=== PATIENT | female | born 1955 | race Caucasian/White ===

== ENCOUNTER → 2023-07-15 | Emergency (ER) | payer OTHER ==
[~2023-07-15] MED LIST: DIPHENOX/ATROP SULF 1 TAB PO ONE; FAMOTIDINE 20 MG/2 ML VIAL IV ONE; NA CHLORIDE 0.9% 1,000 ML ONE; ONDANSETRON 4 MG/2 ML VIAL ONE
[2023-07-15 21:34] LABS: Absolute Lymphocytes (CBC) 0.8 K/uL (0.7-4.9); Hematocrit 42.2 % (36.0-45.0); Lymphocytes % 15.8 % (15.3-44.8); MCV 85.5 fL (80-100); MPV 8.5 fL (7.6-11.3); Platelets 267 thou/uL (152-406); RBC Red Blood Cell Count 4.93 M/uL (3.86-4.86)
[2023-07-15 21:56] LABS: Albumin 3.3 g/dL (3.4-5.0); Bilirubin Direct 0.1 mg/dL (0-0.2); Bilirubin Indirect, Calculated 0.5 mg/dL (0.2-0.8); Bilirubin Total 0.6 mg/dL (0.2-1.0); Protein, Total 7.2 g/dL (6.4-8.2); Troponin High Sensitivity 32.4 pg/mL (<58.9)
[2023-07-15 21:59] LABS: Magnesium 2.6 mg/dL (1.6-2.4); Potassium 3.8 mEq/L (3.5-5.1)
--- NOTE | 2023-07-15 23:17 | ER ---
Nurse's Notes [facility] Name: Siria Montoya Age: 67 yrs Sex: Female : 1955 Arrival Date: 07/15/2023 Time: 20:12 Bed 14 Private MD: Diagnosis: Other specified viral diseases;Diarrhea, unspecified;Influenza A, acute viral gastroenteritis,, acute dehydration, syncopal episode, diarrheal illness. Presentation: 07/15 20:29 Chief complaint: EMS states: SYNCOPAL EPISODE ON TOILET AFTER TWO DAYS OF FLU-LIKE S/S. as6 Coronavirus screen: diarrhea, headache. Ebola Screen: No symptoms or risks identified at this time. Initial Sepsis Screen: Does the patient meet any 2 criteria? HR > 90 bpm. No. Patient's initial sepsis screen is negative. Does the patient have a suspected source of infection? No. Patient's initial sepsis screen is negative. Risk Assessment: Do you want to hurt yourself or someone else? Patient reports no desire to harm self or others. Onset of symptoms is unknown. Care prior to arrival: Medication(s) given: Normal saline infusion, 500 mL, IV initiated. 20:29 Method Of Arrival: EMS: [facility] as6 20:29 Acuity: KAYLI 3 as6 Triage Assessment: 20:31 General: Appears unkempt, Behavior is drowsy. Pain: Unable to use pain scale. GI: as6 Abdomen is non-distended. Historical: - Allergies: 20:31 Bentyl; as6 20:31 Codeine; as6 20:31 Demerol; as6 20:31 pcn; as6 20:31 Sulfa (Sulfonamide Antibiotics); as6 20:31 Talwin; as6 - PMHx: 20:31 HTN; Lupus; as6 - Immunization history:: Adult Immunizations up to date. - Social history:: Smoking status: unknown. - Family history:: not pertinent. Screenin:43 [facility] ED Fall Risk Assessment (Adult) History of falling in the last 3 months, nw1 including since admission Yes- single mechanical fall (1 pt) Confusion or Disorientation No (0 pts) Intoxicated or Sedated No (0 pts) Impaired Gait No (0 pts) Mobility Assist Device Used No (0 pt) Altered Elimination Yes (1 pt) Score/Fall Risk Level 0 - 2 = Low Risk Oriented to surroundings, Maintained a safe environment, Educated pt \T\ family on fall prevention, incl call for assistance when getting out of bed, Provided non-skid footwear, Hourly rounding (assess needs \T\ fall precautionary measures) done. Abuse screen: Denies threats or abuse. Denies injuries from another. Nutritional screening: No deficits noted. Tuberculosis screening: No symptoms or risk factors identified. Assessment: 21:23 Reassessment: PT STATES SHE HAS NOT BEEN FEELING WELL AND WENT TO AN URGENT CARE. SHE nw1 WAS TESTED FOR FLU AND COVID WITH BOTH READS NEGATIVE. PT STATE SHE FELT SO BAD THAT SHE HAD TO CALL EMS FOR TRANSPORT. PT ENDORSES X1 DIARRHEA. General: Appears in no apparent distress. uncomfortable, obese, well groomed, Behavior is calm, cooperative, appropriate for age, Reports feeling ill for 2-3 days. Cardiovascular: Reports None Capillary refill < 3 seconds. Respiratory: Respiratory effort is even, unlabored, Respiratory pattern is regular, symmetrical. GI: Abdomen is round obese, Bowel sounds present X 4 quads. Reports diarrhea. Derm: Skin is intact, is healthy with good turgor, Skin is dry, Skin is pink, warm \T\ dry. Musculoskeletal: Reports weakness in GENERALIZED. Vital Signs: 20:29 BP 85 / 45; Pulse 110; Resp 20; as6 20:36 Weight 90.72 kg; nw1 21:00 BP 125 / 57; Pulse 68; Resp 17; Temp 98.2(O); Pulse Ox 99% ; nw1 23:43 BP 132 / 64; Pulse 71; Resp 17; Pulse Ox 99% on R/A; nw1 ED Course: 20:29 Patient arrived in ED. as6 20:29 Pako Flores MD is Attending Physician. sp4 20:30 Triage completed. as6 20:31 Arm band placed on. as6 20:35 Karina Guerra RN is Primary Nurse. nw1 23:10 No provider procedures requiring assistance completed. Maintain EMS IV. Dressing nw1 intact. Good blood return noted. Site clean \T\ dry. Gauge \T\ site: 20G RAC. 23:43 Patient has correct armband on for positive identification. Placed in gown. Bed in low nw1 position. Call light in reach. Side rails up X2. Adult w/ patient. Provided Education on: POC. Client placed on continuous cardiac and pulse oximetry monitoring. NIBP monitoring applied. hot die picker on. Pulse ox on. NIBP on. 23:43 IV discontinued, intact, bleeding controlled, No redness/swelling at site. Pressure nw1 dressing applied. Administered Medications: 21:11 Drug: NS 0.9% IV 1000 ml IV at 1 bolus Per protocol; 1000 mL bolus Route: IV; Rate: 1 nw1 bolus; Site: right antecubital; 21:12 Drug: Diphenoxylate-Atropine PO 2 tabs PO once Route: PO; nw1 22:23 Drug: NS 0.9% IV 1000 ml IV at 125 ml/hr continuous Route: IV; Rate: 125 ml/hr; Site: nw1 right antecubital; 22:34 Drug: Diphenoxylate-Atropine PO 1 tabs PO once Route: PO; nw1 22:34 Drug: Ondansetron IVP 8 mg IVP once; over 2 minutes Route: IVP; Site: right antecubital;nw1 Medication: 23:43 VIS not applicable for this client. nw1 Outcome: 23:17 Discharge ordered by MD. avila 23:43 Discharged to home ambulatory, with family, nw1 23:43 Condition: stable 23:43 Discharge instructions given to patient, Instructed on discharge instructions, follow up and referral plans. medication usage, Demonstrated understanding of instructions, follow-up care, medications, Prescriptions given X 4, 23:57 Patient left the ED. nw1 Signatures: Hernandez Maxwell RN RN as6 Pako Flores MD MD sp4 Karina Guerra RN RN nw1
--- NOTE | 2023-07-15 23:18 | EDPHYS ---
Physician Documentation [facility] Name: Siria Montoya Age: 67 yrs Sex: Female : 1955 Arrival Date: 07/15/2023 Time: 20:12 Bed 14 Private MD: ED Physician Pako Flores HPI: 07/15 20:31 This 67 yrs old Female presents to ER via EMS with complaints of Diarrhea, sp4 Syncope. 20:31 59-year-old female presents with EMS for syncopal episode at home. Patient states she sp4 has been feeling unwell for a few days she was seen at urgent care clinic yesterday and tested negative for influenza, COVID-19, negative for strep. Patient now presents with syncopal episode on the commode today as she was using BM, patient became diaphoretic passed out on the commode and was lethargic afterwards. EMS administered a 1 L bolus fluid. Patient on arrival alert and oriented. EMS reported hypotension. EKG normal. . Historical: - Allergies: 20:31 Bentyl; as6 20:31 Codeine; as6 20:31 Demerol; as6 20:31 pcn; as6 20:31 Sulfa (Sulfonamide Antibiotics); as6 20:31 Talwin; as6 - PMHx: 20:31 HTN; Lupus; as6 - Immunization history:: Adult Immunizations up to date. - Social history:: Smoking status: unknown. - Family history:: not pertinent. ROS: 20:34 Constitutional: Positive for generalized weakness, positive diarrhea, positive syncope, sp4 positive hypotension, positive diaphoresis 20:34 All other systems are negative, Exam: 20:34 Constitutional: This is a well developed, well nourished patient who is awake, alert, sp4 generalized pallor, diaphoresis, ill-appearing, nontoxic, tachycardic on arrival Head/Face: Normocephalic, atraumatic. Eyes: Pupils equal round and reactive to light, extra-ocular motions intact. Lids and lashes normal. Conjunctiva and sclera are not injected. Cornea within normal limits. Periorbital areas with no swelling, redness, or edema. ENT: Nares patent. No nasal discharge, no septal abnormalities noted. Tympanic membranes are normal and external auditory canals are clear. Oropharynx with no redness, swelling, or masses, exudates, or evidence of obstruction, uvula midline. Mucous membranes moist. Neck: Trachea midline, no thyromegaly or masses palpated, and no cervical lymphadenopathy. Supple, full range of motion without nuchal rigidity, or vertebral point tenderness. Chest/axilla: Normal chest wall appearance and motion. Nontender with no deformity. No lesions are appreciated. Cardiovascular: Regular tachycardia, generalized pallor. no gallops, murmurs, or rubs. Normal PMI, no JVD. No pulse deficits. Respiratory: Lungs have equal breath sounds bilaterally, clear to auscultation and percussion. No rales, rhonchi or wheezes noted. No increased work of breathing, no retractions or nasal flaring. Abdomen/GI: Soft, non-tender, with normal bowel sounds. No distension or tympany. No guarding or rebound. No evidence of tenderness throughout. Back: No spinal tenderness. No costovertebral tenderness. Skin: Warm, dry with normal turgor. Normal color with no rashes, no lesions, and no evidence of cellulitis. MS/ Extremity: Pulses equal, no cyanosis. Neurovascular intact. Full, normal range of motion. Neuro: Awake and alert, GCS 15, oriented to person, place, time, and situation. Cranial nerves II-XII grossly intact. Motor strength 5/5 in all extremities. Sensory grossly intact. Psych: Awake, alert, with orientation to person, place and time. Behavior, mood, and affect are within normal limits Vital Signs: 20:29 BP 85 / 45; Pulse 110; Resp 20; as6 20:36 Weight 90.72 kg; nw1 21:00 BP 125 / 57; Pulse 68; Resp 17; Temp 98.2(O); Pulse Ox 99% ; nw1 23:43 BP 132 / 64; Pulse 71; Resp 17; Pulse Ox 99% on R/A; nw1 MDM: 20:30 Patient medically screened. sp4 23:13 Differential diagnosis: gastritis, diverticulitis, viral gastroenteritis, sp4 gastroenteritis. Data reviewed: vital signs, nurses notes, EMS record, old medical records, lab test result(s), CBC, electrolytes, Flu: positive. Consideration of Admission/Observation Escalation of care including admission/observation considered. ED course: 59-year-old female presents with acute syncope after diarrheal episode in the bathroom. Here patient has had copious diarrhea that is nonbloody. Patient has had nausea as well. Patient tested positive for influenza A. Patient at this time is stable for discharge home will advise clear liquid diet. Importance of clear liquid diet was discussed with the patient. Clear liquid diet advised for at least 24 hours. Tamiflu twice a day for 5 days, Lomotil every 6 hours as needed for diarrhea, ondansetron every 6 hours as needed for nausea. I high-dose ibuprofen for aches and pains. But most importantly clear liquid diet. . 07/15 20:30 Order name: Influenza Screen (a \T\ B); Complete Time: 23:06 sp4 07/15 20:30 Order name: Basic Metabolic Panel; Complete Time: 22:34 sp4 07/15 20:30 Order name: CBC with Diff; Complete Time: 21:56 sp4 07/15 20:30 Order name: LFT's; Complete Time: 22:34 sp4 07/15 20:30 Order name: Magnesium; Complete Time: 22:34 sp4 07/15 20:30 Order name: NT PRO-BNP; Complete Time: 22:34 sp4 07/15 20:30 Order name: Troponin HS; Complete Time: 22:34 sp4 07/15 21:30 Order name: SARS-COV-2 RT PCR; Complete Time: 22:34 EDMS 07/15 20:30 Order name: EKG; Complete Time: 20:30 4 07/15 20:30 Order name: Cardiac monitoring; Complete Time: 21:12 sp4 07/15 20:30 Order name: EKG - Nurse/Tech; Complete Time: 21:12 sp4 07/15 20:30 Order name: IV Saline Lock; Complete Time: 21:12 sp4 07/15 20:30 Order name: Labs collected and sent; Complete Time: 21:12 sp4 07/15 20:30 Order name: O2 Per Protocol; Complete Time: 21:12 sp4 07/15 20:30 Order name: O2 Sat Monitoring; Complete Time: 21:12 sp4 Administered Medications: 21:11 Drug: NS 0.9% IV 1000 ml IV at 1 bolus Per protocol; 1000 mL bolus Route: IV; Rate: 1 nw1 bolus; Site: right antecubital; 21:12 Drug: Diphenoxylate-Atropine PO 2 tabs PO once Route: PO; nw1 22:23 Drug: NS 0.9% IV 1000 ml IV at 125 ml/hr continuous Route: IV; Rate: 125 ml/hr; Site: nw1 right antecubital; 22:34 Drug: Diphenoxylate-Atropine PO 1 tabs PO once Route: PO; nw1 22:34 Drug: Ondansetron IVP 8 mg IVP once; over 2 minutes Route: IVP; Site: right antecubital;nw1 Disposition Summary: 07/15/23 23:17 Discharge Ordered Problem: new sp4 Symptoms: have improved sp4 Condition: Stable sp4 Diagnosis - Other specified viral diseases sp4 - Diarrhea, unspecified sp4 - Influenza A, acute viral gastroenteritis,, acute dehydration, syncopal episode, sp4 diarrheal illness. Followup: sp4 - With: Private Physician - When: 7 - 10 days - Reason: Recheck today's complaints Discharge Instructions: - Discharge Summary Sheet sp4 - Clear Liquid Diet, Adult sp4 - Influenza, Adult, [id number] sp4 Forms: - Patient Portal Instructions sp4 Prescriptions: - Ibuprofen 800 mg Oral Tablet - take 1 tablet ORAL route every 8 hours As needed take with food; 30 tablet; sp4 Refills: 0, Product Selection Permitted - Lomotil 2.5-0.025 mg Oral tablet - take 1 tablet ORAL route every 6 hours As needed PRN diarrhea; 30 tablet; sp4 Refills: 0, Product Selection Permitted - Tamiflu 75 mg Oral capsule - take 1 tablet ORAL route every 12 hours for 5 days; 10 tablet; Refills: 0, sp4 Product Selection Permitted - ondansetron 8 mg Oral Tablet,disintegrating - take 1 tablet ORAL route every 8 hours PRN nausea; 30 tablet; Refills: 0, sp4 Product Selection Permitted Signatures: Dispatcher [employer] Hernandez Timmons RN RN as6 Pako Flores MD MD sp4 Karina Guerra RN RN nw1 Corrections: (The following items were deleted from the chart) 21:30 20:30 SARS-COV-2 Antigen Rapid+I.LAB.BRZ ordered. EDMS EDMS
[2023-07-16 02:44] VITALS: BP 132/64; TEMP 98.2; O2SAT 99
== END ==
LOC: ER 20:12
DX: J10.1 Influenza due to other identified influenza virus with other respiratory manifestations (principal); A08.4 Viral intestinal infection, unspecified; E86.0 Dehydration; R55 Syncope and collapse; Z11.52 Encounter for screening for COVID-19; I10 Essential (primary) hypertension; Z88.0 Allergy status to penicillin; Z88.2 Allergy status to sulfonamides; Z88.5 Allergy status to narcotic agent; Z88.8 Allergy status to other drugs, medicaments and biological substances
CPT/HCPCS: 85025; 80048; 36415; 83735; 80076; 84484; 83880; 87635; 87804 ×2; 96374; 99285; J2405; J7030 ×2

== ENCOUNTER → 2023-07-16 | Emergency (ER) | payer OTHER ==
[2023-07-16 11:47] LABS: Absolute Lymphocytes (CBC) 1.4 K/uL (0.7-4.9); Hematocrit 43.4 % (36.0-45.0); Lymphocytes % 13.2 % (15.3-44.8); MCV 83.4 fL (80-100); MPV 8.5 fL (7.6-11.3); Platelets 274 thou/uL (152-406)
[2023-07-16 12:03] LABS: Albumin 3.3 g/dL (3.4-5.0); Bilirubin Total 0.5 mg/dL (0.2-1.0); Potassium 3.5 mEq/L (3.5-5.1)
--- NOTE | 2023-07-16 12:37 | RAD REPORT ---
EXAM DESCRIPTION: CT - Abdomen Pelvis W Contrast - 07/16/2023 11:56 am CLINICAL HISTORY: ABD PAIN COMPARISON: CT ABD PELVIS W CONTRAST dated 10/11/2015 TECHNIQUE: Thin cut axial CT imaging of the abdomen and pelvis was performed following intravenous a dministration of 100 mL Isovue 300. Multiplanar reformats were generated and reviewed. All CT scans are performed using dose optimization technique as appropriate and may include automated exposure control or mA/KV adjustment according to patient size. FINDINGS: No suspicious findings in the lung bases. The liver, spleen, adrenal glands, and pancreas show no suspicious findings. Gallbladder was surgical ly removed. Symmetric renal function is seen with no hydronephrosis or suspicious renal mass. Long segment wall thickening, mucosal hyperenhancement, and transmural edema, extending from the mid transverse colon to the level of the rectum. Mild adjacent fat stranding. No free air, free fluid or fluid collections. No hernia, mass or bulky lymphadenopathy. The urinary bladder is suboptimally dist ended limiting evaluation. No suspicious bony findings. IMPRESSION: Long segment wall thickening and inflammation involving the mid transverse colon through the rectum suggestive of infectious or inflammatory proctocolitis.
[2023-07-16 12:45] LABS: Specific Gravity 1.016 (1.005-1.030); Urine Bacteria None Seen /HPF (<20); Urine Bilirubin NEGATIVE (Negative); Urine Blood Negative (Negative); Urine Clarity Turbid (Clear); Urine Color Light-Yellow (Yellow); Urine Glucose NEGATIVE (Negative); Urine Mucus Slight /HPF (None Seen); Urine Protein TRACE (Negative); Urine RBC None Seen /HPF (None Seen); Urine Urobilinogen Normal (Normal)
--- NOTE | 2023-07-16 13:32 | ER ---
Nurse's Notes [facility] Name: Siria Montoya Age: 67 yrs Sex: Female : 1955 Arrival Date: 07/16/2023 Time: 11:10 Bed 13 Private MD: Rio Salguero Diagnosis: Unspecified hemorrhoids;Rectal Bleeding Presentation: 07/16 11:16 Chief complaint: Patient states: Bloody stool started today. Has been having diarrhea ll1 from gastroenteritis. Seen here yesterday. Coronavirus screen: Client denies travel out of the [place] in the last 14 days. diarrhea, fatigue, Client presents with at least one sign or symptom that may indicate coronavirus-19. Standard/surgical mask placed on the client. Ebola Screen: Patient denies travel to an Ebola-affected area in the 21 days before illness onset. Risk Assessment: Do you want to hurt yourself or someone else? Patient reports no desire to harm self or others. Onset of symptoms was July 16, 2023. 11:16 Method Of Arrival: Ambulatory 1 11:16 Acuity: KAYLI 2 1 11:21 Initial Sepsis Screen: Does the patient meet any 2 criteria? No. Patient's initial 1 sepsis screen is negative. Does the patient have a suspected source of infection? Yes: Acute abdominal pain. Triage Assessment: 11:18 General: Appears uncomfortable, ill, Behavior is calm, cooperative, appropriate for ll1 age. Pain: Complains of pain in abdomen Pain currently is 10 out of 10 on a pain scale. Quality of pain is described as aching. Neuro: No deficits noted. Cardiovascular: No deficits noted. GI: Reports lower abdominal pain, diarrhea, rectal bleeding, nausea. Historical: - Allergies: 11:14 Bentyl; iw 11:14 Codeine; iw 11:14 Demerol; iw 11:14 pcn; iw 11:14 Sulfa (Sulfonamide Antibiotics); iw 11:14 Talwin; iw - PMHx: 11:14 HTN; Lupus; iw - Immunization history:: Adult Immunizations up to date. - Social history:: Smoking status: Patient denies any tobacco usage or history of. Screenin:09 [facility] ED Fall Risk Assessment (Adult) History of falling in the last 3 months, kd3 including since admission No falls in past 3 months (0 pts) Confusion or Disorientation No (0 pts) Intoxicated or Sedated No (0 pts) Impaired Gait No (0 pts) Mobility Assist Device Used No (0 pt) Altered Elimination No (0 pt) Score/Fall Risk Level 0 - 2 = Low Risk Maintained a safe environment. Abuse screen: Denies threats or abuse. Denies injuries from another. Nutritional screening: No deficits noted. Tuberculosis screening: No symptoms or risk factors identified. Assessment: 14:10 General: Appears in no apparent distress. Behavior is calm, cooperative. Pain: kd3 Complains of pain in abdomen. Vital Signs: 11:16 BP 220 / 101; Pulse 92; Resp 18; Temp 98.8; Pulse Ox 95% ; Weight 90.72 kg; Height 5 ll1 ft. 5 in. ; Pain 10/10; 13:02 BP 198 / 85; kd3 14:10 BP 178 / 81; Pulse 84; Resp 18; Pulse Ox 96% on R/A; kd3 11:16 Body Mass Index 33.28 (90.72 kg, 165.1 cm) ll1 11:16 Pain Scale: Adult ll1 ED Course: 11:11 Patient arrived in ED. rg4 11:11 Rio Salguero DO is Private Physician. rg4 11:13 Vishal Nunes MD is Attending Physician. ec2 11:14 Arm band placed on. iw 11:18 Triage completed. ll1 11:41 Initial lab(s) drawn, by sd, sent to lab. Inserted saline lock: 20 gauge in left iw antecubital area, using aseptic technique. Blood collected. 11:58 CT Abd/Pelvis - IV Contrast Only In Process Unspecified. EDMS 12:06 Ena Fowler, ROCÍO is Primary Nurse. kd3 12:38 [facility] Sent. kd3 13:31 Aidan Brown MD is Referral Physician. ec2 14:09 No provider procedures requiring assistance completed. IV discontinued, intact, kd3 bleeding controlled, No redness/swelling at site. Pressure dressing applied. 14:10 Patient has correct armband on for positive identification. Provided Education on: . kd3 Administered Medications: 12:38 Drug: Famotidine IVP 20 mg IVP once; dilute with 10 mL 0.9% NaCl; give over 2 minutes kd3 Route: IVP; Site: left antecubital; 14:11 Follow up: Response: No adverse reaction kd3 12:38 Drug: NS 0.9% IV 1000 ml IV at 1 bolus Per protocol; 1000 mL bolus Route: IV; Rate: 1 kd3 bolus; Site: left antecubital; 14:11 Follow up: IV Status: Completed infusion; IV Intake: 1000ml kd3 Medication: 14:10 VIS not applicable for this client. kd3 Intake: 14:11 IV: 1000ml; Total: 1000ml. kd3 Outcome: 13:31 Discharge ordered by . ec2 14:09 Discharged to home ambulatory, with family, kd3 14:09 Condition: stable 14:10 Discharge instructions given to patient, family, Instructed on discharge instructions, kd3 follow up and referral plans. Demonstrated understanding of instructions, follow-up care, medications, Prescriptions given X 1, 14:11 Patient left the ED. kd3 Signatures: Dispatcher [employer] Krys Mackenzie RN RN iw Garcia, Rubi rg4 Michelle Newell RN RN ll1 Ena Fowler RN RN kd3 Vishal Nunes MD MD ec2 Corrections: (The following items were deleted from the chart) 11:14 11:14 Arm band placed on Patient placed in an exam room, on a stretcher, iw 11:21 11:16 BP 205 / 130; Pulse 92bpm; Resp 18bpm; Pulse Ox 95%; Temp 98.8F; ll1 ll1
--- NOTE | 2023-07-16 13:32 | EDPHYS ---
Physician Documentation [facility] Name: Siria Montoya Age: 67 yrs Sex: Female : 1955 Arrival Date: 07/16/2023 Time: 11:10 Bed 13 Private MD: Rio Salguero ED Physician Vishal Nunes HPI: 07/16 11:21 This 67 yrs old Female presents to ER via Ambulatory with complaints of Bloody Stools. ec2 11:21 Patient arrives today for evaluation of bloody stools. Patient reports that she was ec2 seen last night for the same complaints, states that she was having some diarrhea and ultimately tested positive for influenza. External record review shows that she tested positive for the flu and had a lab test. Patient reports that what is new today is that she is having bloody stools that is teresa blood. Reports some lower abdominal cramping. Patient reports no issues with vomiting. Does report history of lupus as well as antiphospholipid syndrome.. Historical: - Allergies: 11:14 Bentyl; iw 11:14 Codeine; iw 11:14 Demerol; iw 11:14 pcn; iw 11:14 Sulfa (Sulfonamide Antibiotics); iw 11:14 Talwin; iw - PMHx: 11:14 HTN; Lupus; iw - Immunization history:: Adult Immunizations up to date. - Social history:: Smoking status: Patient denies any tobacco usage or history of. ROS: 11:21 Constitutional: as per hpi ec2 Exam: 11:21 Constitutional: GEN: NAD Head: atraumatic Eyes: EOMI Ears: External ears are ec2 normal. CV: regular rate LUNGS: no respiratory distress ABD: non-distended, soft, not guarding, not rigid SKIN: no evidence of rashes MSK: no evidence of trauma NEURO: moves all extremities equally Vital Signs: 11:16 BP 220 / 101; Pulse 92; Resp 18; Temp 98.8; Pulse Ox 95% ; Weight 90.72 kg; Height 5 ll1 ft. 5 in. ; Pain 10/10; 13:02 BP 198 / 85; kd3 14:10 BP 178 / 81; Pulse 84; Resp 18; Pulse Ox 96% on R/A; kd3 11:16 Body Mass Index 33.28 (90.72 kg, 165.1 cm) ll1 11:16 Pain Scale: Adult ll1 MDM: 11:19 Patient medically screened. ec2 11:21 Data reviewed: vital signs. ED course: Patient arrives today for evaluation of lower ec2 abdominal pain along with rectal bleeding. Examination remarkable for well-appearing nontoxic individual is otherwise in no acute distress, will obtain lab work, CT imaging, treat the patient symptoms with Pepcid and crystalloid and reassess the patient. Currently considering gastroenteritis, diverticulosis, low suspicion for upper GI bleed given lack of history for liver pathology, low suspicion for acute abdominal process such as aortoenteric fistula. . 12:39 ED course: CBC is reassuring without evidence of anemia. Metabolic profile shows ec2 appropriate electrolytes, diminished renal function with a GFR 52 and a creatinine of 1.14. CT imaging shows infectious or inflammatory proctocolitis. Given the patient's constellation of symptoms, I favor viral process. . 13:30 ED course: Rectal examination performed under nursing supervision, patient with ec2 hemorrhoids x 3, otherwise no blood or melena noted on DIMITRY. Patient otherwise remains well-appearing in no acute distress. I used shared decision making regarding inpatient hospitalization given the patient's symptoms however the patient declined and states that she felt comfortable return to home. I will discharge home, have a follow-up with the primary care doctor and give her information to a GI doctor.. 07/16 11:21 Order name: CBC with Diff; Complete Time: 12:39 ec2 07/16 11:21 Order name: CMP; Complete Time: 12:39 ec2 07/16 11:21 Order name: UAM; Complete Time: 13:04 ec2 07/16 11:21 Order name: CT Abd/Pelvis - IV Contrast Only; Complete Time: 12:39 ec2 Administered Medications: 12:38 Drug: Famotidine IVP 20 mg IVP once; dilute with 10 mL 0.9% NaCl; give over 2 minutes kd3 Route: IVP; Site: left antecubital; 14:11 Follow up: Response: No adverse reaction kd3 12:38 Drug: NS 0.9% IV 1000 ml IV at 1 bolus Per protocol; 1000 mL bolus Route: IV; Rate: 1 kd3 bolus; Site: left antecubital; 14:11 Follow up: IV Status: Completed infusion; IV Intake: 1000ml kd3 Disposition Summary: 07/16/23 13:31 Discharge Ordered Notes: Location: Home ec2 Condition: Stable ec2 Diagnosis - Unspecified hemorrhoids ec2 - Rectal Bleeding ec2 Followup: ec2 - With: Aidan Brown MD - When: - Reason: Recheck today's complaints Discharge Instructions: - Discharge Summary Sheet ec2 - Bloody Diarrhea ec2 Forms: - Medication Reconciliation Form ec2 - Thank You Letter ec2 - Antibiotic Education ec2 - Prescription Opioid Use ec2 - Patient Portal Instructions ec2 - Leadership Thank You Letter ec2 Prescriptions: - ciprofloxacin HCl 500 mg Oral tablet - take 1 tablet ORAL route every 12 hours for 5 days; 10 tablet; Refills: 0, ec2 Product Selection Permitted Signatures: Dispatcher [employer] EDKrys Swift RN RN iw Michelle Newell RN RN ll1 Ena Fowler RN RN kd3 Vishal Nunes MD MD ec2 Corrections: (The following items were deleted from the chart) 13:31 13:30 ED course: Rectal examination performed under nursing supervision, patient with ec2 hemorrhoids x 3, otherwise no blood or melena noted on DIMITRY.. ec2 13:43 13:30 ED course: Rectal examination performed under nursing supervision, patient with ec2 hemorrhoids x 3, otherwise no blood or melena noted on DIMITRY. Patient otherwise remains well-appearing in no acute distress. I will discharge home, have a follow-up with the primary care doctor and give her information to a GI doctor.. ec2
[2023-07-16 15:38] VITALS: BP 178/81; TEMP 98.8; O2SAT 96
== END ==
LOC: ER 11:10
DX: K64.9 Unspecified hemorrhoids (principal); Z88.0 Allergy status to penicillin; Z88.2 Allergy status to sulfonamides; Z88.5 Allergy status to narcotic agent; Z88.8 Allergy status to other drugs, medicaments and biological substances
CPT/HCPCS: 96361; 85025; 81001; 36415; 80053; 74177; 96374; 99284; Q9967

== ENCOUNTER 2023-09-02 09:44 | Day surgery (SDC) | payer OTHER ==
[2023-08-30 11:47] LABS: Potassium 4.1 mEq/L (3.5-5.1)
[2023-09-02] MEDS: NA CHLORIDE 0.9% 1,000 ML ONE (10:00)
[2023-09-02 11:02] VITALS: O2SAT 99
[2023-09-02] MEDS ORDERED: propofoL 200 MG/20 ML VIAL IV ONE (11:10)
[2023-09-02] MEDS ORDERED: LIDOCAINE 1% MPF 5 ML VIAL ONE (11:10)
--- NOTE | 2023-09-02 13:42 | EKG ---
Test Date: 2023-08-30 Test Time: 12:21:34 Kier Drier: RONAL MEASUREMENT RESULTS: Intervals: Rate: 71 ND: 164 QRSD: 82 QT: 390 QTc: 423 Creede: P: 73 ND: 164 QRS: 41 T: 83 INTERPRETIVE STATEMENTS: Normal sinus rhythm Low voltage QRS Borderline ECG Compared to ECG 10/11/2015 14:33:40 Low QRS voltage now present Electronically Signed On 09-02-23 13:35:17 [employer] APPRENTICE by Demetrius Yarbrough
[2023-09-02 14:55] VITALS: BP 137/64; TEMP 96.9
== END 2023-09-02 13:57 | disposition home or self-care (01) ==
LOC: OR 09:44
PROVIDERS: ATTEND Surgery
PROC: 0DBN8ZX Excision of Sigmoid Colon, Via Natural or Artificial Opening Endoscopic, Diagnostic (ICD-10-PCS; 2023-09-02)
PROC: 0DBN8ZX Excision of Sigmoid Colon, Via Natural or Artificial Opening Endoscopic, Diagnostic (ICD-10-PCS; principal; 2023-09-02 12:30)
DX: R19.7 Diarrhea, unspecified (principal); K59.00 Constipation, unspecified; K57.30 Diverticulosis of large intestine without perforation or abscess without bleeding; K64.8 Other hemorrhoids; K56.699 Other intestinal obstruction unspecified as to partial versus complete obstruction; Z86.16 Personal history of COVID-19; I10 Essential (primary) hypertension; I25.2 Old myocardial infarction
CPT/HCPCS: 93005; 80048; 36415; 82947; 88305; 45380 ×2; J2704; J2001; J7030

== ENCOUNTER 2025-04-11 23:23 | Emergency (ER) | payer OTHER ==
[2025-04-12] MEDS ORDERED: NA CHLORIDE 0.9% 500 ML ONE (01:04)
[2025-04-12] MEDS ORDERED: ONDANSETRON 4 MG/2 ML VIAL ONE (01:04)
[2025-04-12] MEDS ORDERED: FAMOTIDINE 20 MG/2 ML VIAL IV ONE (01:04)
[2025-04-12] MEDS ORDERED: MORPHINE 4 MG/ML SYR ONE ×2 (01:04→05:05)
[2025-04-12 01:20] LABS: Hematocrit 46.4 % (36.0-45.0)
[2025-04-12 01:24] LABS: Absolute Lymphocytes (CBC) 1.1 K/uL (0.7-4.9); Hemoglobin 15.7 g/dL (12.0-15.0); MCH 28.8 pg (27.0-35.0); MCHC 33.9 g/dL (32.0-36.0); MCV 85.1 fL (80-100); MPV 8.8 fL (7.6-11.3); Nucleated RBC Absolute Count 0.0 (0-0); Nucleated Red Blood Cells % 0.1 % (0-0); RBC Red Blood Cell Count 5.45 M/uL (3.86-4.86); White Blood Count 15.90 thou/uL (4.3-10.9)
[2025-04-12 01:28] LABS: PT Prothrombin Time 11.5 SECONDS (10-13.0); PTT, Activated Partial Thromb 30.0 SECONDS (27.2-37.4); Protime INR 1.02
[2025-04-12 01:41] LABS: ALT/SGPT 31.0 U/L (13-56); AST/SGOT 20.0 U/L (15-37); Albumin 3.9 g/dL (3.4-5.0); Albumin/Globulin Ratio 1.0 (1.1-1.8); Alkaline Phosphatase 123.0 U/L (45-117); Anion Gap 9.8 mEq/L (5.0-15.0); BUN Blood Urea Nitrogen 18.0 mg/dL (7-18); Bilirubin Indirect, Calculated 0.4 mg/dL (0.2-0.8); Globulin 3.9 g/dL (2.3-3.5); Glucose Level 172.0 mg/dL (74-106); Lipase 24.0 U/L (13-75); Magnesium 2.4 mg/dL (1.6-2.4); NT PRO-BNP 71.0 pg/mL (<125); Potassium 3.8 mEq/L (3.5-5.1); Troponin High Sensitivity 8.8 pg/mL (<58.9)
[2025-04-12 01:46] LABS: Differential Total Cells Count 100; Segmented Neutrophils 88 % (40-80)
[2025-04-12 01:47] LABS: Blood Morphology Comment NOT SEEN (NOT SEEN)
--- NOTE | 2025-04-12 05:46 | RAD REPORT ---
INDICATION: ABDOMINAL DISTENTION COMPARISON: No existing relevant imaging studies are available FINDINGS: Single frontal view of the chest was obtained. SUPPORT DEVICES: None HEART/MEDIASTINUM: Cardiomediastinal contours are normal. LUNGS/PLEURA: Lungs are clear. No pleural effusion or pneumothorax. OTHER: No other significant findings. IMPRESSION: No acute findings. Electronically signed by: Jean Luna DO 04/12/2025 02:01 AM CDT RP NR Due to temporary technical issues with the PACS/[employer] reporting system, reports are being roberta d by the in-house radiologist without review as a courtesy to ensure prompt reporting the interpreting radiologist is fully responsible for the content of the report. Transcribed Date/Time: 04/12/2025 5:46 AM
[2025-04-12] MEDS ORDERED: LACTULOSE 20 GM/30 ML UCUP ONE (06:19)
[2025-04-12] MEDS ORDERED: CEFTRIAXONE 1000 MG/VIAL ONE (06:19)
--- NOTE | 2025-04-12 06:19 | ER ---
Nurse's Notes [facility] Name: Siria Montoya Age: 69 yrs Sex: Female : 1955 Arrival Date: 04/11/2025 Time: 23:23 Bed 18 Private MD: Rio Salguero Diagnosis: Indeterminate colitis;Constipation Presentation: 04/12 00:11 Chief complaint: Patient states: NAUSEA, CONSTIPATED X1 WEEK, AND ABD CRAMPING. THINKS jj7 SHE HAS A BOWEL OBSTRUCTION. HAD ONE IN THE PAST. Coronavirus screen: At this time, the client does not indicate any symptoms associated with coronavirus-19. Ebola Screen: No symptoms or risks identified at this time. Initial Sepsis Screen: Does the patient meet any 2 criteria? No. Patient's initial sepsis screen is negative. Does the patient have a suspected source of infection? No. Patient's initial sepsis screen is negative. Risk Assessment: Do you want to hurt yourself or someone else? Patient reports no desire to harm self or others. Note 2 FLEETS ENEMA, 2 SUPPOSITORIES, LINZES. 00:11 Method Of Arrival: Ambulatory jj7 00:11 Acuity: KAYLI 3 jj7 04:12 Onset of symptoms. kd4 Triage Assessment: 00:11 General: Appears in no apparent distress. uncomfortable, Behavior is calm, cooperative, jj7 appropriate for age. Pain: Complains of pain in abdomen. GI: Reports lower abdominal pain, constipation, cramping, nausea. Historical: - Allergies: 00:20 Bentyl; jj7 00:20 Codeine; jj7 00:20 Demerol; jj7 00:20 pcn; jj7 00:20 Sulfa (Sulfonamide Antibiotics); jj7 00:20 Talwin; jj7 - PMHx: 00:20 HTN; Lupus; jj7 - PSHx: 00:20 ABDOMINAL (Lupus); Cholecystectomy; Total abdominal hysterectomy; BILAT WRIST; jj7 - Immunization history:: Adult Immunizations up to date. - Infectious Disease History:: Denies. - Social history:: Smoking status: Patient denies any tobacco usage or history of. Patient/guardian denies using alcohol, street drugs, IV drugs. Screenin:51 [facility] ED Fall Risk Assessment (Adult) History of falling in the last 3 months, kd4 including since admission No falls in past 3 months (0 pts) Confusion or Disorientation No (0 pts) Intoxicated or Sedated No (0 pts) Impaired Gait No (0 pts) Mobility Assist Device Used No (0 pt) Altered Elimination No (0 pt) Score/Fall Risk Level 0 - 2 = Low Risk Oriented to surroundings. Abuse screen: Denies threats or abuse. Nutritional screening: No deficits noted. Tuberculosis screening: No symptoms or risk factors identified. Assessment: 01:51 General: Appears in no apparent distress. Behavior is calm, cooperative. Pain: kd4 Complains of pain in abdomen Pain currently is 10 out of 10 on a pain scale. Neuro: No deficits noted. Cardiovascular: Denies chest pain, shortness of breath. Respiratory: No deficits noted. GI: Abd is soft Abdomen is tender to palpation. 06:51 General: Patient had a lorge BM post lactulose.. kd4 Vital Signs: 00:11 BP 140 / 86; Pulse 81; Resp 20; Temp 97.2; Pulse Ox 100% ; Weight 74.84 kg; Height 5 jj7 ft. 5 in. ; Pain 10/10; 02:52 BP 165 / 62; Pulse 69; Resp 18; Pulse Ox 98% on R/A; kd4 03:49 BP 156 / 66; Pulse 62; Resp 18; Pulse Ox 99% on R/A; Pain 10/10; kd4 06:11 BP 157 / 60; Pulse 67; Resp 18; Pulse Ox 96% on R/A; kd4 06:51 BP 113 / 94; Pulse 72; Resp 18; Temp 98.6(O); Pulse Ox 100% ; Pain 4/10; kd4 00:11 Body Mass Index 27.46 (74.84 kg, 165.1 cm) jj7 00:11 Pain Scale: Adult jj7 03:49 Pain Scale: Adult kd4 06:51 Pain Scale: Adult kd4 Broadbent Coma Score: 01:51 Eye Response: spontaneous(4). Motor Response: obeys commands(6). Verbal Response: kd4 oriented(5). Total: 15. ED Course: 04/11 23:27 Patient arrived in ED. gm2 23:27 Rio Salguero DO is Private Physician. gm2 04/12 00:11 Arm band placed on right wrist. Patient placed in an exam room, on a stretcher. jj7 00:19 Triage completed. jj7 00:22 Srinivas Power PA-C is PHCP. cp 00:22 Puneet Martinez DO is Attending Physician. cp 00:30 Renea Donald, ROCÍO is Primary Nurse. kd4 01:09 No provider procedures requiring assistance completed. Inserted saline lock: 20 gauge al5 in left antecubital area, using aseptic technique. Blood collected. Flushed with 10 mL NS. 01:18 XRAY Chest (1 view) In Process Unspecified. EDMS 01:51 Patient has correct armband on for positive identification. Side rails up X2. Adult w/ kd4 patient. Client placed on continuous cardiac and pulse oximetry monitoring. NIBP monitoring applied. hand packer/packager on. Pulse ox on. NIBP on. 01:56 EKG done. kd4 03:46 CT Abd/Pelvis - PO and IV Contrast In Process Unspecified. EDMS 06:17 Rio Salguero DO is Referral Physician. tt7 06:52 Provided Education on: D/C INSTRUCTION. kd4 06:52 IV discontinued. kd4 Administered Medications: 01:12 Drug: Ondansetron IVP 4 mg IVP once; over 2 minutes Route: IVP; Site: left antecubital; kb4 01:54 Follow up: Response: No adverse reaction kd4 01:12 Drug: Famotidine IVP 20 mg IVP once; dilute with 10 mL 0.9% NaCl; give over 2 minutes kb4 Route: IVP; Site: left antecubital; 01:56 Follow up: Response: No adverse reaction kd4 01:13 Drug: NS 0.9% IV 500 ml 500 ml IV at 1 bolus once; to be given as a bolus over 60 kb4 minutes Volume: 500 ml; Route: IV; Rate: 1 bolus; Site: left antecubital; 06:54 Follow up: IV Status: Completed infusion kd4 01:13 Drug: morphine IVP or IV 4 mg IVP once over 4 mins Route: IVP; Infused Over: 4 mins; kb4 Site: left antecubital; 01:53 Follow up: Response: No adverse reaction kd4 05:07 Drug: morphine IVP or IV 4 mg IVP once over 4 mins Route: IVP; Infused Over: 4 mins; kd4 Site: left antecubital; 06:15 Follow up: Response: No adverse reaction kd4 06:21 Drug: Rocephin IV 1 grams IV at bolus once; Given slow IV push per pharmacy kd4 instructions Route: IV; Rate: bolus; Site: left antecubital; 06:36 Follow up: IV Status: Completed infusion kd4 06:36 Not Given (Not in pyxis, says no needd): mg PO once kd4 06:36 Drug: Lactulose PO 20 grams 30 ml PO once Volume: 30 ml; Route: PO; kd4 06:53 Follow up: Response: No adverse reaction kd4 Medication: 01:51 VIS not applicable for this client. kd4 Outcome: 06:19 Discharge ordered by . tt7 06:52 Discharged to home ambulatory, with family, kd4 06:52 Condition: stable 06:52 Discharge instructions given to patient, Instructed on discharge instructions, follow up and referral plans. medication usage, Demonstrated understanding of instructions, follow-up care, medications, Prescriptions given X 2, 06:53 Patient left the ED. kd4 Signatures: Dispatcher [employer] EDMS Srinivas Power, CHING-Geovani PA-Korey Dover cp, RN RN jjBlanca Cavazos 2 Renea Donald RN RN kd4 Barbara Mulligan RN RN al5 Sera Gonzalez RN RN kb4 Puneet Martinez, DO DO tt7
--- NOTE | 2025-04-12 06:19 | EDPHYS ---
Physician Documentation [facility] Name: Siria Montoya Age: 69 yrs Sex: Female : 1955 Arrival Date: 04/11/2025 Time: 23:23 Bed 18 Private MD: Rio Salguero ED Physician Puneet Martinez HPI: 04/12 00:40 This 69 yrs old Female presents to ER via Ambulatory with complaints of Abdominal Pain, cp Back Pain, Constipation. 00:40 The patient presents with abdominal pain that is diffuse, abdominal distention that is cp diffuse. Onset: The symptoms/episode began/occurred 1 week(s) ago. Associated signs and symptoms: Pertinent positives: blood in stools, constipation, nausea, Pertinent negatives: chest pain, diarrhea, fever, shortness of breath, active vomiting. The symptoms are described as crampy. Severity of pain: in the emergency department the pain is unchanged despite home interventions, similar pain to when diagnosed with bowel obstruction. Historical: - Allergies: 00:20 Bentyl; jj7 00:20 Codeine; jj7 00:20 Demerol; jj7 00:20 pcn; jj7 00:20 Sulfa (Sulfonamide Antibiotics); jj7 00:20 Talwin; jj7 - PMHx: 00:20 HTN; Lupus; jj7 - PSHx: 00:20 ABDOMINAL (Lupus); Cholecystectomy; Total abdominal hysterectomy; BILAT WRIST; jj7 - Immunization history:: Adult Immunizations up to date. - Infectious Disease History:: Denies. - Social history:: Smoking status: Patient denies any tobacco usage or history of. Patient/guardian denies using alcohol, street drugs, IV drugs. ROS: 00:45 Eyes: Negative for injury, pain, redness, and discharge, cp 00:45 Constitutional: Negative for body aches, chills, fever, poor PO intake, 00:45 ENT: Negative for drainage from ear(s), ear pain, sore throat, difficulty swallowing, difficulty handling secretions, 00:45 Cardiovascular: Negative for chest pain, edema, palpitations, 00:45 Respiratory: Negative for cough, shortness of breath, wheezing, 00:45 Abdomen/GI: Positive for abdominal pain, nausea, constipation, abdominal distension, Negative for vomiting, diarrhea, 00:45 Neuro: Negative for altered mental status, dizziness, weakness, 00:45 All other systems are negative, Exam: 00:50 Constitutional: The patient appears in no acute distress, alert, awake, cp non-diaphoretic, non-toxic, well developed, well nourished, uncomfortable, 00:50 Head/Face: Normocephalic, atraumatic. cp 00:50 Eyes: Periorbital structures: appear normal, Conjunctiva: normal, no exudate, no injection, Sclera: no appreciated abnormality, Lids and lashes: appear normal, bilaterally, 00:50 ENT: External ear(s): are unremarkable, Nose: is normal, Mouth: Lips: moist, Oral mucosa: moist, Posterior pharynx: Airway: no evidence of obstruction, patent, 00:50 Neck: ROM/movement: is normal, is supple, without pain, no range of motions limitations, 00:50 Chest/axilla: Inspection: normal, 00:50 Cardiovascular: Rate: normal, Rhythm: regular, Edema: is not appreciated, JVD: is not appreciated, 00:50 Respiratory: the patient does not display signs of respiratory distress, Respirations: normal, no use of accessory muscles, no retractions, labored breathing, is not present, Breath sounds: are clear throughout, no decreased breath sounds, no stridor, no wheezing, 00:50 Abdomen/GI: Inspection: distension, that is moderate, Bowel sounds: active, all quadrants, Palpation: soft, in all quadrants, moderate abdominal tenderness, in all quadrants, rebound tenderness, is not appreciated, involuntary guarding, is not appreciated, 00:50 Back: CVA tenderness, is absent, 00:50 Neuro: Orientation: to person, place \T\ time. Mentation: is normal, Motor: moves all fours, strength is normal, 01:52 ECG was reviewed by the Attending Physician. cp Vital Signs: 00:11 BP 140 / 86; Pulse 81; Resp 20; Temp 97.2; Pulse Ox 100% ; Weight 74.84 kg; Height 5 jj7 ft. 5 in. ; Pain 10/10; 02:52 BP 165 / 62; Pulse 69; Resp 18; Pulse Ox 98% on R/A; kd4 03:49 BP 156 / 66; Pulse 62; Resp 18; Pulse Ox 99% on R/A; Pain 10/10; kd4 06:11 BP 157 / 60; Pulse 67; Resp 18; Pulse Ox 96% on R/A; kd4 06:51 BP 113 / 94; Pulse 72; Resp 18; Temp 98.6(O); Pulse Ox 100% ; Pain 4/10; kd4 00:11 Body Mass Index 27.46 (74.84 kg, 165.1 cm) jj7 00:11 Pain Scale: Adult jj7 03:49 Pain Scale: Adult kd4 06:51 Pain Scale: Adult kd4 [place] Coma Score: 01:51 Eye Response: spontaneous(4). Motor Response: obeys commands(6). Verbal Response: kd4 oriented(5). Total: 15. MDM: 00:22 Medical Screening Exam initiated 01:00 Differential diagnosis: bowel obstruction, diverticulitis, gastritis, non-specific abd pain, pancreatitis, Peptic Ulcer Disease, Perf. Duodenal Ulcer, Perf. Gastric Ulcer. 03:15 Care significantly affected by the following chronic conditions: Hypertension, lupus. 03:15 I considered the following discharge prescriptions or medication management in the emergency department Medications were administered in the Emergency Department. See MAR. Response to treatment: the patient's symptoms have mildly improved after treatment. Awaiting: CT scan results. Transition of care: After a detail discussion of the patient's case, care is transferred to [facility]. 07:23 Differential diagnosis: Hydronephrosis Peptic Ulcer Perforated Ulcer Pyelonephritis tt7 Constipation, stercoral colitis, colitis, diverticulitis, appendicitis, small bowel obstruction. Data reviewed: vital signs, nurses notes, lab test result(s), amylase and lipase, CBC, electrolytes, hepatic panel, radiologic studies, CT scan. Historians other than the Patient: Spouse/Significant Other: Provided collateral history. ED course: 6-year-old female who presented with abdominal pain radiating to her back, no bowel movement for the past 7 days, her vital signs were stable and physical exam showed some mild abdominal distention but no peritoneal signs, she was treated with IV antiemetics and opioid analgesia, laboratory studies demonstrated a mild leukocytosis of 15,000, otherwise overall reassuring lab studies, she had CT imaging of the abdomen/pelvis which demonstrated moderate constipation and some wall thickening of the colon consistent with colitis, I discussed results of the workup with the patient and she reported that she recently had a urinary tract infection and had short course of cephalexin but was still having symptoms, given her CT findings of colitis, some bladder wall thickening which could represent cystitis, and continued urinary symptoms and leukocytosis, I believe is reasonable to give a dose of IV ceftriaxone here in the emergency department and treat her with a short 4-day course of cefdinir, I have sent a urine sample for culture, overall she has been struggling with constipation, I gave her dose of lactulose here in the emergency department and she has already received oral contrast which should help her defecate, I discussed outpatient management of constipation with MiraLAX, I discussed return precautions with the patient, emergency department evaluation is reassuring. I do not suspect life-threatening process. Patient is stable and not in need of emergent medical intervention. I had a detailed discussion with the patient regarding the historical points, exam findings, emergency department evaluation, diagnostic results, and the discharge diagnosis. I discussed outpatient management of the patient's condition. I discussed the need for outpatient follow-up with primary care and relevant specialist. I discussed return precautions including the need to return to the ED if symptoms do not improve, worsen, or if there are any questions or concerns that arise at home. The patient was discharged in stable condition. 04/12 00:43 Order name: Basic Metabolic Panel; Complete Time: 02: cp 04/12 02:09 Interpretation: Normal except: GLUC 172; CRE 1.20; GFR 49. cp 04/12 00:43 Order name: CBC with Diff; Complete Time: 02: cp 04/12 00:43 Order name: LFT's; Complete Time: 02: cp 04/12 00:43 Order name: Magnesium; Complete Time: 02: cp 04/12 00:43 Order name: NT PRO-BNP; Complete Time: 02: cp 04/12 00:43 Order name: PT-INR; Complete Time: 02: cp 04/12 00:43 Order name: Troponin HS; Complete Time: 02: cp 04/12 00:43 Order name: Ptt, Activated; Complete Time: 02: cp 04/12 00:43 Order name: Lipase; Complete Time: 02: cp 04/12 01:34 Order name: Manual Differential; Complete Time: 02:09 EDMS 04/12 00:43 Order name: XRAY Chest (1 view) cp 04/12 00:55 Order name: CT Abd/Pelvis - PO and IV Contrast 04/12 00:43 Order name: Cardiac monitoring; Complete Time: 04/12 00:43 Order name: EKG - Nurse/Tech; Complete Time: : 04/12 00:43 Order name: IV Saline Lock; Complete Time: : 04/12 00:43 Order name: Labs collected and sent; Complete Time: 04/12 00:43 Order name: O2 Per Protocol; Complete Time: : 04/12 00:43 Order name: O2 Sat Monitoring; Complete Time: : EC:52 Rate is 73 beats/min. Rhythm is regular. OK interval is normal. QRS interval is normal. cp QT interval is normal. T waves are Inverted in lead aVR. Interpreted by me. Reviewed by me. Administered Medications: 01:12 Drug: Ondansetron IVP 4 mg IVP once; over 2 minutes Route: IVP; Site: left antecubital; 4 01:54 Follow up: Response: No adverse reaction kd4 01:12 Drug: Famotidine IVP 20 mg IVP once; dilute with 10 mL 0.9% NaCl; give over 2 minutes kb4 Route: IVP; Site: left antecubital; 01:56 Follow up: Response: No adverse reaction kd4 01:13 Drug: NS 0.9% IV 500 ml 500 ml IV at 1 bolus once; to be given as a bolus over 60 kb4 minutes Volume: 500 ml; Route: IV; Rate: 1 bolus; Site: left antecubital; 06:54 Follow up: IV Status: Completed infusion kd4 01:13 Drug: morphine IVP or IV 4 mg IVP once over 4 mins Route: IVP; Infused Over: 4 mins; kb4 Site: left antecubital; 01:53 Follow up: Response: No adverse reaction kd4 05:07 Drug: morphine IVP or IV 4 mg IVP once over 4 mins Route: IVP; Infused Over: 4 mins; kd4 Site: left antecubital; 06:15 Follow up: Response: No adverse reaction kd4 06:21 Drug: Rocephin IV 1 grams IV at bolus once; Given slow IV push per pharmacy kd4 instructions Route: IV; Rate: bolus; Site: left antecubital; 06:36 Follow up: IV Status: Completed infusion kd4 06:36 Not Given (Not in pyxis, says no needd): [id number] mg PO once kd4 06:36 Drug: Lactulose PO 20 grams 30 ml PO once Volume: 30 ml; Route: PO; kd4 06:53 Follow up: Response: No adverse reaction kd4 Disposition: 07:27 Co-signature as Attending Physician, Puneet Martinez DO I reviewed the patient's care tt7 provided by Advanced Practice Provider \T\ agree w/ the diagnosis \T\ care plan. I personally saw the pt \T\ performed a substantive portion of the visit, incldng all aspects of the (History/Exam/Medical Decision Making). Disposition Summary: 04/12/25 06:19 Discharge Ordered Notes: Location: Home tt7 Problem: an acute exacerbation tt7 Symptoms: have improved tt7 Condition: Stable tt7 Diagnosis - Indeterminate colitis tt7 - Constipation tt7 Followup: tt7 - With: Emergency Department - When: As needed - Reason: Followup: tt7 - With: Rio Salguero DO - When: 2 - 3 days - Reason: Recheck today's complaints, Continuance of care, Re-evaluation by your physician Discharge Instructions: - Discharge Summary Sheet tt7 - Constipation, Adult, Xiss-od-Keol tt7 - Colitis tt7 Forms: - Medication Reconciliation Form tt7 - Antibiotic Education tt7 - Prescription Opioid Use tt7 - Patient Portal Instructions tt7 - Leadership Thank You Letter tt7 Prescriptions: - Miralax 17 gram Oral powder in packet - take 1 packet ORAL route 2 times per day for 10 days; 20 packet; Refills: 0, tt7 Product Selection Permitted - cefdinir 300 mg Oral capsule - take 1 capsule ORAL route 2 times per day for 4 days; 8 capsule; Refills: 0, tt7 Product Selection Permitted Signatures: Dispatcher [facility] Srinivas Power PA-C PA-C cp Johnson, Juwairiyah, RN RN jj7 Renea Donald RN RN kd4 Sera Gonzalez RN RN kb4 Puneet Martinez DO DO tt7 Corrections: (The following items were deleted from the chart) 00:44 00:44 BASIC METABOLIC PANEL+C.LAB.BRZ ordered. EDMS EDMS 00:44 00:44 CBC+H.LAB.BRZ ordered. EDMS EDMS 00:44 00:44 HEPATIC FUNCTION+C.LAB.BRZ ordered. EDMS EDMS 00:44 00:44 MAGNESIUM+C.LAB.BRZ ordered. EDMS EDMS 00:44 00:44 PROBNP+C.LAB.BRZ ordered. EDMS EDMS 00: 00:44 PROTIME (+INR)+COAG.LAB.BRZ ordered. EDMS EDMS 00:44 00:44 Troponin High Sensitivity+C.LAB.BRZ ordered. EDMS EDMS 00: 00:44 PTT, ACTIVATED+COAG.LAB.BRZ ordered. EDMS EDMS 00: 00:44 LIPASE+C.LAB.BRZ ordered. EDMS EDMS 00:44 00:44 Chest Single View+RAD.RAD.BRZ ordered. EDMS EDMS 03:04/11 00:45 Constitutional: Negative for body aches, chills, fever, poor PO intake, cp cp 04/12 03:04/11 00:45 Cardiovascular: Negative for chest pain, edema, palpitations, cp cp 04/12 03:04/11 00:45 Respiratory: Negative for cough, shortness of breath, wheezing, cp cp 04/12 03:04/11 00:45 Abdomen/GI: Positive for abdominal pain, nausea, constipation, abdominal cp distension, Negative for vomiting, diarrhea, cp 04/12 03:04/11 00:45 Eyes: Negative for injury, pain, redness, and discharge, cp cp 04/12 03:04/11 00:45 ENT: Negative for drainage from ear(s), ear pain, sore throat, difficulty cp swallowing, difficulty handling secretions, cp 04/12 03:04/11 00:45 Neuro: Negative for altered mental status, dizziness, weakness, cp cp 04/12 03:04/11 00:45 All other systems are negative, cp cp
--- NOTE | 2025-04-12 06:32 | RAD REPORT ---
EXAM DESCRIPTION: Abdomen Pelvis W Contrast CLINICAL HISTORY: ABDOMINAL DISTENTION COMPARISON: 07/16/2023 TECHNIQUE: CT of the abdomen and pelvis performed following IV administration of iodinated contrast . This exam was performed according to our departmental dose-optimization program, which includes automated exposure control, adjustment of the mA and/or kV according to patient size and/or use of it erative reconstruction technique. FINDINGS: Lung Bases: Minimal dependent atelectasis. Bones: Posterior dick and screw fixation with discectomy at L3/4. Mild endplate spondylosis and facet arthropathy throughout the visualized spine. Osteopenia. Abdomen: Liver: The liver has normal size and decreased density. Gallbladder: Prior cholecystectomy. Spleen, Pancreas, and Adrenal Glands: The spleen, pancreas, and adrenal glands are unremarkable. Kidneys: No hydronephrosis or obstructing calculus. Vasculature: The aorta and IVC have normal caliber and position. The portal vein is patent. The pro ximal visceral and renal arteries are patent. Stomach: The stomach and duodenum have normal course. Other: No free intraperitoneal air. Small amount of free fluid. Pelvis: Bladder: Mild wall thickening of the urinary bladder. Bowel: No dilated loops of large or small bowel. Long segment wall thickening throughout the sigmoi d colon. Mild adjacent inflammatory change. Fluid-filled ascending colon. Moderate amount of stool. Appendix: Not well individually identified. Pelvis: Prior hysterectomy. IMPRESSION: 1. Long segment wall thickening throughout the sigmoid colon with mild adjacent inflammatory change . These findings could be seen with nonspecific colitis of infectious or inflammatory etiology. 2. Mild wall thickening of the urinary bladder. This could be seen with cystitis or may be reactive . 3. Hepatic steatosis. 4. Small amount of free fluid. Electronically signed by: Soto De Jesus DO 04/12/2025 05:54 AM CDT 4ZDM Due to temporary technical issues with the PACS/[employer] reporting system, reports are being roberta d by the in-house radiologist without review as a courtesy to ensure prompt reporting the interpreting radiologist is fully responsible for the content of the report. Transcribed Date/Time: 04/12/2025 6:31 AM
[2025-04-12 07:04] VITALS: BP 113/94; TEMP 98.6; O2SAT 100
== END 2025-04-12 06:53 | disposition home or self-care (01) ==
LOC: ER 23:23
DX: K59.00 Constipation, unspecified (principal); K52.3 Indeterminate colitis
CPT/HCPCS: 96361; 93005; 85025; 80048; 36415; 83735; 85610; 80076; 85730; 84484; 83690; 83880; 74177; 71045; 96375; 96374; 99285; Q9967; J2405; J7040; J0696